=== PATIENT | female | born 1955 ===

== ENCOUNTER 2018-12-23 13:36 | Emergency (ER) | payer BC ==
--- NOTE | 2018-12-23 13:59 | ED ---
Skin Complaint - HPI Summary HPI Summary: Patient is a 63-year-old female who presents emergency department for possible allergic to reaction to flu vaccination. Patient works in the micro-lab at the hospital and had a flu shot this morning around 0800. Patient states that 4 hours later she noticed itching to her neck and redness. Patient denies facial swelling, chest pain, shortness of breath, urticaria. Patient states she has been receiving the flu vaccination for the last 4 years. Patient states she believes when she was younger she was exempt from the flu vaccination but is unsure why. Patient denies any known allergies. She denies any new exposures. Symptoms are mild in severity. No current modifying factors. - History of Current Complaint Chief Complaint: EDAllergicReaction Time Seen by Provider: 12/23/18 13:56 Stated Complaint: RASH/ITCHY NECK -FLU SHOT TODAY. PER PATIENT Hx Obtained From: Patient Pain Intensity: 0 - Allergy/Home Medications Allergies/Adverse Reactions: Allergies Allergy/AdvReac Type Severity Reaction Status Date / Time No Known Allergies Allergy Verified 12/23/18 13:50 PMH/Surg Hx/FS Hx/Imm Hx Previously Healthy: Yes Musculoskeletal History: Denies: Hx Rheumatoid Arthritis, Hx Osteoporosis Infectious Disease History: No Infectious Disease History: Denies: Traveled Outside the [place] in Last 30 Days - Family History Known Family History: Positive: Non-Contributory - Social History Occupation: Employed Full-time Lives: With Family Review of Systems ENT: Negative Cardiovascular: Negative Negative: Chest Pain Respiratory: Negative Negative: Shortness Of Breath Gastrointestinal: Negative Positive: Rash Neurological: Negative All Other Systems Reviewed And Are Negative: Yes Physical Exam Triage Information Reviewed: Yes Vital Signs On Initial Exam: Initial Vitals Temp Pulse Resp BP Pulse Ox 98.5 F 86 17 138/90 99 12/23/18 13:45 12/23/18 13:45 12/23/18 13:45 12/23/18 13:45 12/23/18 13:45 Vital Signs Reviewed: Yes Appearance: Positive: Well-Appearing - Pt. sitting in chair in NAD. Pleasant. Skin: Positive: Warm, Dry, Other - Faint erythema to to lateral right neck and right upper arm. No localized rxn noted at injection sight to right arm. No urticaria. Head/Face: Positive: Normal Head/Face Inspection, Other - No facial or mouth edema. ENT: Positive: Pharynx normal, Uvula midline Neck: Positive: Supple Respiratory/Lung Sounds: Positive: Clear to Auscultation, Breath Sounds Present. Negative: Wheezes Cardiovascular: Positive: Normal, RRR Neurological: Positive: Normal, CN Intact II-III Psychiatric: Positive: Affect/Mood Appropriate Procedures - Sedation Patient Received Moderate/Deep Sedation with Procedure: No Diagnostics - Vital Signs Vital Signs Temp Pulse Resp BP Pulse Ox 12/23/18 13:45 98.5 F 86 17 138/90 99 - Laboratory Lab Statement: Any lab studies that have been ordered have been reviewed, and results considered in the medical decision making process. Course/Dx - Course Course Of Treatment: Patient presenting for possible reaction to flu vaccination. No evidence of anaphylaxis on exam. Patient has mild redness and itching to her neck and right arm. No urticaria. Patient declines Benadryl stating it makes her too sleepy. Patient was given a dose of Zyrtec, prednisone and Pepcid in the ER. Patient observed in the ER for 2 hours and rash and itching are improving. We will discharge home on a few days of prednisone. Advised Benadryl as directed. To follow-up with [facility] if needed and given return precautions. Patient understands and agrees with plan. - Differential Diagnoses - Skin Complaint Differential Diagnoses: Contact Dermatitis, Local Allergic Reaction - Diagnoses Provider Diagnoses: Allergic reaction Discharge ED - Sign-Out/Discharge Documenting (check all that apply): Patient Departure - Discharge Plan Condition: Improved Disposition: HOME Prescriptions: predniSONE TAB* [Deltasone 20 MG TAB*] 40 mg PO DAILY #6 tab predniSONE TAB* [Deltasone 20 MG TAB*] 40 mg PO DAILY #6 tab Patient Education Materials: Antibiotic Medication Allergy (ED) Referrals: [facility] [Outside] [facility] [Outside] Additional Instructions: Follow up with the [facility] in 2-3 days if rash persist Prednisone as directed Take benadryl as directed Return to ER if symptoms change or worsen - Billing Disposition and Condition Condition: IMPROVED Disposition: Home
[2018-12-23] MEDS ORDERED: Famotidine TAB* 20 MG PO ONE (14:18)
[2018-12-23] MEDS ORDERED: Cetirizine* 10 MG TAB PO ONE (14:18)
[2018-12-23] MEDS ORDERED: predniSONE TAB* 20 MG PO ONE (14:18)
[2018-12-23 17:05] VITALS: BP 178/87
== END 2018-12-23 17:00 | disposition home or self-care (01) ==
LOC: ED 13:36
DX: T80.62XA Other serum reaction due to vaccination, initial encounter (principal); T50.B95A Adverse effect of other viral vaccines, initial encounter; Y92.9 Unspecified place or not applicable
CPT/HCPCS: 99282; A9270-GY; J7512